=== PATIENT | male | born 1970 | race Caucasian/White ===

== ENCOUNTER 2024-03-04 08:37 | Inpatient (IN) | payer BC ==
--- OUTSIDE RECORDS SUMMARY | 2024-03-04 08:40 | XMS REPORT | Continuity of Care Document ---
Author Name Unknown Address [address] [place] [address] [facility] thconnect Address [address] [place] [address] Care Team Providers Care Patent Law Specialist Name Role Phone ALDA DA SILVA Attending Clinician UnavailKATY Mata Attending Clinician Unavailable MIGUEL VASQUEZ Attending Clinician Unavailable SPARKLE SCALES Attending Clinician Unavailable ONDINA CABEZAS Attending Clinician Unavailable KELLEY ACEVEDO Attending Clinician Unavailable TERRY BROWER Attending Clinician Unavaila ble LAB90 Attending Clinician Unavailable ADILSON KERR Attending Clinician DR SASKIA Dubose Attending Clinician Unavailable DR SASKIA LLOYD Admitting Clinician Unavailable Payers Payer Name Policy Type Policy Number Effective Date Expirati on Date Source BCBS 2 [id number] 2022 00:00:00 Social History Social Habit Start Date Stop Date Quantity Comments Source Gender identity 2022-08-16 07:13:17 Identifies as male gender (finding) Rashida Avalos - External Sexual orientation Husam Avalos - External Alcoholic beverage intake 2024-01-31 00:00:00 2024-01-31 00:00:00 Current drinker of alcohol (finding) Rashida Avalos - External Alcohol intake 2023-06-12 00:00:00 2023-06-12 00:00:00 Current drinker of alcohol (finding) Rashida Avalos - External Tobacco use and exposure 2023-01-25 00:00:00 2023-01-25 00:00:00 Smokeless tobacco non-user Rashida Sánchez History of Social function 2023-01-25 00:00:00 2023-01-25 00:00:00 Rashida Sánchez Alcohol Comment 2023-01-25 00:00:00 2023-01-25 00:00:00 occasionally Rashida Sánchez Sex [birth year] at 1970 00:00:00 1970 00:00:00 Rashida Sánchez Smoking Status Start Date Stop Date Source Tobacco smoking consumption unknown Rashida Sánchez Never smoked tobacco Rashida Sánchez Medications Ordered Medication Name Filled Medication Name Start Date Stop Date Current Medication? Ordering Clinician Indication Dosage Frequency Signature (SIG) Comments Components Source Naproxen 500 MG oral Tablet 01-30 00:00: 00 Yes [id number] 500mg Take 1 tablet (500 mg total) by mouth in the morning and 1 tablet (500 mg total) in the evening. Take with meals. Rashida vann Cyclobenzap rine HCl 10 MG oral Tablet 01-30 00:00: 00 Yes [id number] 10mg Q.[id number] 3D Take 1 tablet (10 mg total) by mouth 3 times daily as needed for muscle spasms. Rashida vann Pseudoeph-B romphen-DM 30-2-10 MG/5ML oral Syrup 12-03 00:00: 00 01-30 00:00 :00 No [id number] 10mL Q.25D Take 10 mL by mouth 4 times daily as needed. Rasihda vann Azithromyci n 500 MG oral Tablet 12-03 00:00: 00 01-30 00:00 :00 No [id number] 500mg QD Take 1 tablet (500 mg total) by mouth daily. Rashida vann Amoxicillin -Pot Clavulanate 875-125 MG oral Tablet 2022-07 00:00: 00 Yes [id number] 1{tbl} Take 1 tablet by mouth 2 times daily. Rashida vann Pseudoeph-B romphen-DM 30-2-10 MG/5ML oral Syrup 2022-07 1-29 00:00: 00 12-03 00:00 :00 No [id number] 10mL Take 10 mL by mouth 4 times daily. Rashida vann Valacyclovi r HCl 500 MG oral Tablet -14 00:00: 00 Yes 500mg Take 1 tablet (500 mg total) by mouth daily. Rashida vann Pseudoeph-B romphen-DM (Bromfed DM) 30-2-10 MG/5ML oral Syrup -14 00:00: 00 Yes [id number] 10mL Q.25D Take 10 mL by mouth 4 times daily as needed Rashida vann guaiFENesin -Codeine (Cheratussi n AC) 100-10 MG/5ML oral Syrup 08-16 00:00: 00 01-25 00:00 :00 No [id number] 5mL Q.[id number] 3D Take 5 mL by mouth 3 times daily as needed for cough Rashida vann Azithromyci n 250 MG oral Tablet 08-16 00:00: 00 08-22 05:59 :00 No [id number] Take 2 tablets by mouth on day 1 then 1 tablet by mouth daily for 4 days thereafter . Rashida vann Vital Signs Vital Name Observation Time Observation Value Comments S ource Systolic blood pressure 2023-06-12 16:37:00 124 mm[Hg] Rashida thomas - External Diastolic blood pressure 2023-06-12 16:37:00 80 mm[Hg] Rashida thomas - External Heart rate 2023-06-12 16:37:00 68 /min Wendy Avalos - External Body temperature 2023-06-12 16:37:00 36.67 Marjorie Rashida Avalos - External Respiratory rate 2023-06-12 16:37:00 16 /min Rashida Avalos - External Body height 2023-06-12 16:37:00 182.9 cm Audelia Avalos - External Body weight 2023-06-12 16:37:00 95.255 kg Audelia ey Seybold - External BMI 2023-06-12 16:37:00 28.48 kg/m2 Audelia ey Seybold - External Oxygen saturation in Arterial blood by Pulse oximetry 2023-06-12 16:37:00 96 /min Rashida Membrenoo ld - External Systolic blood pressure 2023-01-25 15:59:00 106 mm[Hg] Rashida Membrenoo ld - External Diastolic blood pressure 2023-01-25 15:59:00 68 mm[Hg] Rashida Membrenoo ld - External Heart rate 2023-01-25 15:59:00 88 /min Wendy y Seybold - External Body temperature 2023-01-25 15:59:00 36.89 Marjorie Rashida Seybold - External Respiratory rate 2023-01-25 15:59:00 18 /min Rashida Seybold - External Body height 2023-01-25 15:59:00 182.9 cm Audelia ey Seybold - External Body weight 2023-01-25 15:59:00 93.26 kg Audelia ey Seybold - External BMI 2023-01-25 15:59:00 27.88 kg/m2 Audelia ey Seybold - External Encounters Start Date/Time End Date/Time Encounter Type Admission Type Attending [facility] Care Facility Care Department Encounter ID Source 2021-11-18 12:25:00 Outpatient [facility] [id number] [facility] 2021-08-02 15:21:02 Outpatient [facility] [id number] [facility] 2021-07-28 14:32:17 Outpatient [facility] [id number] [facility] 2024-03-08 15:00:00 2024-03-08 15:00:00 Outpatient ALDA DA SILVA [id number] Rashida Avalos 2024-02-15 13:45:00 2024-02-15 13:45:00 Outpatient RASHIDA LYON [id number] Rashida Avalos 2024-02-14 13:45:00 2024-02-14 13:45:00 Outpatient RASHIDA LYON [id number] Rashida Membrenoold 2024-01-31 11:15:00 2024-01-31 11:15:00 Outpatient KATY MCCLOUD [facility]IDA LYON [id number] [facility]23-12-04 12:00:00 2023-12-04 12:00:00 Outpatient MIGUEL VASQUEZ [facility]NO [id number] [facility]:00:00 2023-07-06 00:00:00 Outpatient SPARKLE SCALES [id number] [facility] 2023-06-20 00:00:00 2023-06-20 00:00:00 Outpatient ONDINA CABEZAS [id number] [facility] 2023-06-19 00:00:00 2023-06-19 00:00:00 Outpatient BELLEONDINA BROOKS [id number] [facility] 2023-06-12 11:00:00 2023-06-12 11:00:00 Outpatient AVINASH ALDA RASHIDA LYON [id number] [facility] 2023-05-31 08:00:00 2023-05-31 08:00:00 Outpatient KELLEY ACEVEDO RASHIDA LYON [id number] [facility] 2023-05-15 00:00:00 2023-05-15 00:00:00 [facility] [id number] [facility]:00:00 2023-03-21 00:00:00 Outpatient RODOLFOChio TERRY [facility] [id number] [facility]21 00:00:00 2023-03-21 00:00:00 Outpatient SPARKLE SCALES [id number] [facility] 2023-03-21 00:00:00 2023-03-21 00:00:00 Outpatient SPARKLE SCALES [id number] [facility] 2023-03-17 00:00:00 2023-03-17 00:00:00 Outpatient SPARKLE SCALES [id number] Rashida Avalos 2023-02-24 00:00:00 2023-02-24 00:00:00 Outpatient SPARKLE SCALES [facility]ASHIDA LYON [id number] [facility]23-02-01 00:00:00 2023-02-01 00:00:00 Outpatient SPARKLE SCALES [facility]ASHIDA LYON [id number] [facility] 2023-01-25 15:25:00 2023-01-25 15:25:00 Outpatient LAB90 RASHIDA LYON [id number] Rashida [facility] 2023-01-25 11:00:00 2023-01-25 11:00:00 Outpatient SPARKLE SCALES RASHIDA LYON [id number] Rashida [facility] 2022-08-22 11:00:00 2022-08-22 11:00:00 Outpatient SPARKLE SCALES [facility]IDA LYON [id number] [facility] 2022-08-16 11:45:00 2022-08-16 11:45:00 Outpatient ADILSON KERR [id number] [facility] 2022-08-16 00:00:00 2022-08-16 00:00:00 Outpatient ADILSON KERR [id number] [facility] 2017-02-17 04:50:00 2017-02-17 07:30:00 Outpatient SASKIA HAYES [facility] [id number] [facility] Notes Date/Time Note Provider Source 2023-01-25 11:04:35 Formatting of this n ote is different from the original. Chief Complaint Patient presents with Physical [facility] Whit[facility]
[2024-03-04] MEDS ORDERED: HYDROMORPHONE HCL 1 MG/ML INJ ONE ×2 (08:59→09:50)
[2024-03-04 09:15] LABS: Absolute Lymphocytes (CBC) 0.2 K/uL (0.7-4.9); Absolute Monocytes 0.2 K/uL (0.1-1.3); Absolute Neutrophil 7.8 K/uL (1.8-8.0); Basophils % 0.4 % (0-1.3); Eosinophils % 0.1 % (0-4.4); Hematocrit 51.2 % (39.6-49.0); Hemoglobin 17.1 g/dL (13.6-17.9); Lymphocytes % 2.4 % (15.3-44.8); MCH 32.8 pg (27.0-35.0); MCHC 33.3 g/dL (32.0-36.0); MCV 98.4 fL (80-100); MPV 8.1 fL (7.6-11.3); Monocytes % 2.9 % (3.3-12.3); Neutrophils % 94.2 % (41.7-73.7); Platelets 190 thou/uL (152-406); Red Cell Distribution Width 13.9 % (12.1-15.2)
[2024-03-04 09:22] LABS: Albumin 3.7 g/dL (3.4-5.0); Albumin/Globulin Ratio 1.1 (1.1-1.8); Anion Gap 3.6 mEq/L (5.0-15.0); Bilirubin Total 1.5 mg/dL (0.2-1.0); Globulin 3.3 g/dL (2.3-3.5)
[2024-03-04 09:23] LABS: Potassium 4.6 mEq/L (3.5-5.1)
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
[2024-03-04] MEDS ORDERED: NA CHLORIDE 0.9% 100 ML ONE (09:32)
[2024-03-04] MEDS ORDERED: NA CHLORIDE 0.9% 1,000 ML ONE (09:32)
[2024-03-04] MEDS ORDERED: ONDANSETRON 4 MG/2 ML VIAL ONE ×2 (09:32→12:56)
[2024-03-04] MEDS ORDERED: PIPERACIL/TAZO 3.375 GM VIAL IV ONE (09:33)
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
[2024-03-04 10:08] LABS: Blood Morphology Comment NOT SEEN (NOT SEEN); Platelet Estimate ADEQ; White Blood Cell Scan OK (OK)
[2024-03-04] MEDS: SUCCINYLCHOLINE 20 MG/ML (10 ML) IV ONE (10:26)
[2024-03-04] MEDS ORDERED: FENTANYL CITR 100 MCG/2 ML ONE (10:26)
[2024-03-04] MEDS ORDERED: MIDAZOLAM HCL 2 MG/2 ML INJ ONE (10:26)
[2024-03-04] MEDS ORDERED: LIDOCAINE 2% MPF 5 ML VIAL ONE (10:26)
[2024-03-04] MEDS: SUGAMMADEX SODIUM 200 MG/2 ML VIAL IV ONE (10:26)
[2024-03-04] MEDS ORDERED: propofoL 200 MG/20 ML VIAL IV ONE (10:26)
[2024-03-04] MEDS ORDERED: ROCURONIUM 50 MG/5 ML VIAL IV ONE ×2 (10:26→12:19)
[2024-03-04] MEDS: Ringers Lactate 1,000 ML IV ONE ×2 (10:45→12:13)
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
[2024-03-04] MEDS ORDERED: ONDANSETRON 4 MG/2 ML VIAL IV PRN (11:31)
[2024-03-04] MEDS ORDERED: EPHEDRINE SULF 50 MG/ML VIAL ONE (11:43)
[2024-03-04] MEDS: NA CHLORIDE 0.9% 1,000 ML IV SCH (12:00)
[2024-03-04] MEDS ORDERED: dexAMETHasone 4 MG/ML VIAL ONE (12:56)
--- NOTE | 2024-03-04 13:26 | P.OP ---
Date of Service: 03/04/24 Preop diagnosis: Perforated rectum secondary to foreign body Postop diagnosis: Same with stool and blood in the pelvis Procedure performed: Exploratory laparotomy, repair of rectal perforation, repair of umbilical hernia and diverting sigmoid colostomy Surgeon: Dayton Hernandez MD Form Tamper: Juliet OCHOA Estimated blood loss: Minimal Specimen: Hernia sac and contents Findings: As above Anesthesia: General Complications: None Drains: Yakov-Chacon #10 flat Fluids and blood products: Nonapplicable Disposition: Recovery room Operative note: Patient brought to the OR and placed in supine position. General anesthesia began. Patient prepped and draped in usual sterile fashion. Midline incision from just above the umbilicus to the pubis made. Subcutaneous tissue divided and bleeding controlled with cautery. Fascia identified and divided. Peritoneal cavity entered with sharp and blunt dissection. Moderate amount of serous fluid mixed with stool was present in the pelvis. This was aspirated. Exploratory laparotomy performed which showed GE junction, normal stomach, normal duodenal sweep and normal small bowel proximally. Distally the small bowel was in the pelvis with appearance of induration and small amount of fecal contamination. Cecum, ascending colon, transverse colon and sigmoid colon were within normal limits. Liver, gallbladder and peritoneal surface were within normal limit as well. At the proximal rectum there was approximately a 4 inch tear in the anterior portion of the rectum exposing the mucosa. The tear was longitudinal and length. There was some induration and bruising noted in the nearby tissue. There was stool in the pelvis which was evacuated. Entire abdomen was thoroughly irrigated until the effluent was clear. The tear was repaired with 3-0 Vicryl interlocking running suture. There was no compromise in the circumference of the rectum as the tear appeared to be linear. Proximal to the tear, sigmoid colon was mobilized at the white line of Toldt. Endo MARIA ELENA stapling device used to divide the sigmoid colon at the rectal junction. LigaSure used to mobilize the sigmoid colon. A 2 cm circular incision was made in the left lower quadrant. Subcutaneous fat was excised. Fascia was identified and opened. Through this opening, the sigmoid colon was taking out for maturation. Colostomy was matured after the midline incision was closed. Subsequently, entire abdomen was irrigated and effluent was clear. There was no evidence of bleeding or bowel contents seen. Yakov-Chacon drain #10 flat was placed in the pelvis and secured in the right lower quadrant with 3-0 nylon. #2 nylon was used to close the midline fascia. There was a small umbilical hernia with a 1 cm defect near the midline. The hernia sac was excised with preperitoneal fat. This was sent to pathology as specimen. Fascial defect was closed along with the midline fascia. Subcutaneous wounds irrigated and bleeding controlled cautery. Kristy used to loosely close the skin. Sterile dressing applied. And then the colostomy was matured with circular 3-0 chromic interrupted sutures. Colostomy was examined there was no obstruction and mucosa was pink and healthy appearing. Sterile dressing applied. Patient awakened and taken to recovery room in good general condition. CC:
[2024-03-04] MEDS ORDERED: NALOXONE 0.4 MG/ML VIAL IV PRN (13:36)
[2024-03-04] MEDS ORDERED: SODIUM CHLORIDE 0.9% 10ML INJ IV PRN (13:36)
[2024-03-04] MEDS: HYDROMORPHONE HCL 1 MG/ML INJ ONE ×2 (13:54→14:01)
--- NOTE | 2024-03-04 15:02 | RAD REPORT ---
EXAM DESCRIPTION: RAD - Abdomen 1 View (KUB) - 03/04/2024 2:22 pm CLINICAL HISTORY: Placement of NGT/OGT. Post Insertion. COMPARISON: Abdomen Pelvis W Contrast dated 03/04/2024 FINDINGS: Nonobstructive bowel gas pattern. No acute osseous abnormality.Visualized lungs are unrema rkable.No abnormal calcifications. NG tube tip overlies the stomach. IMPRESSION: NG tube tip overlies the stomach in satisfactory position.
[2024-03-04 15:28] VITALS: BMI 24.4
[2024-03-04] MEDS: HYDROMORPHONE/PCA 10 MG/50 ML SYR IV PRN (15:34)
[2024-03-04 15:42] LABS: Specific Gravity > 1.030 (1.005-1.030); Sqamous Epithelial None Seen /HPF (None Seen); Urine Bacteria None Seen /HPF (<20); Urine Bilirubin NEGATIVE (Negative); Urine Blood 1+ (Negative); Urine Clarity Clear (Clear); Urine Color Light-Yellow (Yellow); Urine Culture Reflex Order NOT NEEDED; Urine Glucose 3+ (Negative); Urine Ketones NEGATIVE (Negative); Urine Microscopic Reflex YN ORDER UMIC; Urine Mucus Slight /HPF (None Seen); Urine Nitrite NEGATIVE (Negative); Urine Protein TRACE (Negative); Urine Urobilinogen 1+ (Normal); Urine WBC <5 /HPF (<5); Urine pH 6.5 (5.0-7.0)
[2024-03-04] MEDS: PIPER TAZO 3.375 GM in NA CHLORIDE 0.9% 100 ML IV SCH (17:15)
[2024-03-04] MEDS: HYDRALAZINE HCL 20 MG/ML VIAL IV PRN (17:16)
[2024-03-05] MEDS: HYDROMORPHONE HCL 1 MG/ML INJ IV PRN (03:53)
[2024-03-05 05:46] LABS: Absolute Lymphocytes (CBC) 0.3 K/uL (0.7-4.9); Absolute Monocytes 0.4 K/uL (0.1-1.3); Basophils % 0.1 % (0-1.3); Hematocrit 45.2 % (39.6-49.0); Lymphocytes % 2.7 % (15.3-44.8); MCH 33.2 pg (27.0-35.0); MCHC 33.3 g/dL (32.0-36.0); MCV 99.6 fL (80-100); MPV 8.3 fL (7.6-11.3); Monocytes % 4.1 % (3.3-12.3); Neutrophils % 93.1 % (41.7-73.7); Nucleated Red Blood Cells % 0.1 % (0-0); Platelets 176 thou/uL (152-406); RBC Red Blood Cell Count 4.53 M/uL (4.33-5.43)
[2024-03-05 06:01] LABS: Albumin 3.1 g/dL (3.4-5.0); Anion Gap 9.2 mEq/L (5.0-15.0); Globulin 3.2 g/dL (2.3-3.5); Phosphorus 3.5 mg/dL (2.5-4.9); Potassium 4.2 mEq/L (3.5-5.1); Protein, Total 6.3 g/dL (6.4-8.2)
[2024-03-05] MEDS: ENOXAPARIN 40 MG/0.4 ML SQ SCH (07:59)
[2024-03-05] MEDS: PANTOPRAZOLE 40 MG INJ IVP SCH (08:00)
[2024-03-05] MEDS: PHENOL 1.4% ORAL SPRAY 180ML MM PRN (11:08)
--- NOTE | 2024-03-05 11:56 | P.PN ---
Date of Service: 03/05/24 Subjective Awake and feeling well Ambulated with physical therapy this morning ROS 10 point ROS as noted above, otherwise negative Physical Exam General: Alert and Oriented x3, NAD HEENT: Atraumatic, Normocephalic Neck: Supple, 2+ carotid pulse no bruit Respiratory: Clear to auscultation bilaterally, Normal air movement, on RA Cardiovascular: Normal pulses, RRR, Normal S1 S2 Capillary refill: <2 Seconds Gastrointestinal: Hypoactive, Soft and benign on palpation, Non-distended, Tenderness Musculoskeletal: No clubbing Integumentary: No rashes Neurological: Normal speech, Normal tone Vitals Reviewed Problem list Acute Upper rectal perforation PASCALE Transaminitis Hyperglycemia Assessment and Plan Acute Upper rectal perforation -CT abd/pelvis Findings concerning for upper rectal perforation with extralumi nal feces, mild free air, and abdominopelvic free fluid. Recommend surgical consultation. -Dr. Hernandez consulted -H/H stable, will continue to monitor -NPO except ice chips, advance slowly while healing -Pain control -Continue Zosyn Q8h PASCALE -BUN/creatinine 22/1.26, GFR 68- improved -Continue IVF Transaminitis - AST 48, ALT 67 -continue IVF -monitor in AM labs Hyperglycemia -Serum glucose 147, POC 150 -A1C pending -Continue to monitor DVT ppx lovenox Full code LOS 2-3 days Discharge Plan: Home Plan to discharge in: 72 Hours
--- NOTE | 2024-03-05 12:38 | EKG ---
Test Date: 2024-03-04 Test Time: 10:23:25 Sales Support Associate: SOUTH MEASUREMENT RESULTS: Intervals: Rate: 80 AL: 158 QRSD: 104 QT: 352 QTc: 405 Roca: P: 71 AL: 158 QRS: 84 T: 25 INTERPRETIVE STATEMENTS: Normal sinus rhythm Minimal voltage criteria for LVH, may be normal variant Borderline ECG Compared to ECG 02/10/2017 11:39:35 Sinus bradycardia no longer present T-wave abnormality no longer present Electronically Signed On 03-05-24 12:37:04 CDT by Vincent Shannon
--- NOTE | 2024-03-05 13:09 | PN ---
Date of Progress Note: 03/05/2024 Subjective: Patient is awake, alert. Pain is controlled. Vitals are stable, afebrile. NG tube 350 . JOHN drain has serosanguineous fluid, put out 180 cc at the last shift. Laboratory Data: Reviewed. White count is 10.7, there is a left shift, and chemistry reviewed. Objective: Vital Signs: Stable. He is afebrile. Abdomen: Soft. Hypoactive bowel sounds. Dressing is clean, dry, and intact. Assessment: Status post repair of rectal perforation and diverting sigmoid colostomy. Recommendations: Discontinue Ricardo as urine output is adequate. We will transfer him to the floor. Chloraseptic for irritation of the throat from the NG tube. Please note, the ostomy is pink and wit h no bowel function at this time. Continue IV antibiotics. Encouraged ambulation with Import Coordinator apy and incentive spirometry. Patient is clinically stable, and the patient will be downgraded from the ICU today. /MODL Voice ID: [id number] Report ID: [id number]
[2024-03-06 05:05] LABS: Absolute Eosinophils 0.1 K/uL (0-0.5); Absolute Lymphocytes (CBC) 0.3 K/uL (0.7-4.9); Absolute Monocytes 0.4 K/uL (0.1-1.3); Absolute Neutrophil 7.5 K/uL (1.8-8.0); Basophils % 0.1 % (0-1.3); Eosinophils % 0.6 % (0-4.4); Hematocrit 42.3 % (39.6-49.0); Hemoglobin 14.1 g/dL (13.6-17.9); Lymphocytes % 3.6 % (15.3-44.8); MCHC 33.3 g/dL (32.0-36.0); MPV 7.9 fL (7.6-11.3); Monocytes % 5.3 % (3.3-12.3); Platelets 193 thou/uL (152-406); RBC Red Blood Cell Count 4.28 M/uL (4.33-5.43); Red Cell Distribution Width 14.1 % (12.1-15.2)
[2024-03-06 05:13] LABS: Neutrophils % 90.4 % (41.7-73.7)
[2024-03-06 05:24] LABS: Albumin 2.8 g/dL (3.4-5.0); Albumin/Globulin Ratio 0.8 (1.1-1.8); Anion Gap 20.2 mEq/L (5.0-15.0); Bilirubin Total 0.8 mg/dL (0.2-1.0); Globulin 3.3 g/dL (2.3-3.5); Phosphorus 1.8 mg/dL (2.5-4.9); Potassium 4.2 mEq/L (3.5-5.1); Protein, Total 6.1 g/dL (6.4-8.2)
[2024-03-06] MEDS: SODIUM PHOSPHATE 15 MM in NA CHLORIDE 0.9% 250 ML IV SCH (08:15)
--- NOTE | 2024-03-06 09:27 | PN ---
Date of Progress Note: 03/06/2024 Subjective: The patient is awake, alert. No complaints. Minimal serous fluid out of the colostomy. No gas seen yet. The patient feels rumbling in his stomach. Minimal output from the NG tube. Objective: Vital Signs: Stable. He is afebrile. Abdomen: Soft, nondistended. Positive bowel sounds. Minimal incisional tenderness. Dressing is cl dario, dry, intact Laboratory Data: Reviewed. White count is normal. There is slight left shift. Chemistry is review ed. Assessment: Status post repair of his rectal injury as well as diverting sigmoid colostomy. Recommendations: We will clamp the NG tube and check residuals. Begin sips of clear liquids. The p atient is clinically stable, slowly improving. Continue IV antibiotics. Encourage ambulation and in centive spirometry, which he is doing very well. /MODL Voice ID: [id number] Report ID: [id number]
[2024-03-06] MEDS: HYDROMORPHONE HCL 1 MG/ML INJ IV PRN (11:45)
--- NOTE | 2024-03-06 12:56 | P.PN ---
Date of Service: 03/06/24 Subjective Sitting in his chair, using the incentive spirometer, reports slowing drinking water. He reports walking while pushing his IV pole Reports passing gas ROS 10 point ROS as noted above, otherwise negative Physical Exam General: AAO x3, NAD HEENT: Atraumatic, Normocephalic Neck: Supple, 2+ carotid pulse no bruit Respiratory: Clear to auscultation bilaterally, metrical chest wall movement, on RA Cardiovascular: Normal pulses, mild tachycardia, Normal S1 S2 Capillary refill: <2 Seconds Gastrointestinal: normal active Bowel sounds, Soft on palpation, ND, Tenderness, NGT present, Colostomy Musculoskeletal: No clubbing Integumentary: No rashes Neurological: Normal speech, Normal tone Vitals Reviewed Problem list Acute Upper rectal perforation PASCALE Transaminitis Hyperglycemia Assessment and Plan Acute Upper rectal perforation -CT abd/pelvis Findings concerning for upper rectal perforation with extraluminal feces, mild free air, and abdominopelvic free fluid. Recommend surgical consultation. -Dr. Hernandez consulted -H/H stable -CLD -Pain control -Continue Zosyn Q8h -NGT in place, likely removing tonight PASCALE -BUN/creatinine 17/1.18, GFR 71- improved -Continue IVF Transaminitis - AST 34, ALT 54 -continue IVF -monitor in AM labs Hyperglycemia -Serum glucose 100 -A1C 5.0 -Continue to monitor DVT ppx lovenox Full code LOS 2-3 days Discharge Plan: Home Plan to discharge in: 72 Hours
[2024-03-06] MEDS ORDERED: HYDROMORPHONE HCL 0.5 MG/0.5 ML INJ IV PRN ×2 (16:20→16:22)
[2024-03-07 05:32] LABS: Absolute Eosinophils 0.1 K/uL (0-0.5); Absolute Lymphocytes (CBC) 0.4 K/uL (0.7-4.9); Absolute Monocytes 0.4 K/uL (0.1-1.3); Absolute Neutrophil 5.3 K/uL (1.8-8.0); Basophils % 0.3 % (0-1.3); Eosinophils % 0.9 % (0-4.4); Hematocrit 44.6 % (39.6-49.0); Lymphocytes % 6.7 % (15.3-44.8); MCH 33.1 pg (27.0-35.0); MCHC 33.6 g/dL (32.0-36.0); MCV 98.5 fL (80-100); Monocytes % 5.9 % (3.3-12.3); Neutrophils % 86.2 % (41.7-73.7); Platelets 217 thou/uL (152-406); RBC Red Blood Cell Count 4.52 M/uL (4.33-5.43)
[2024-03-07 05:53] LABS: Albumin/Globulin Ratio 0.8 (1.1-1.8); Anion Gap 7.3 mEq/L (5.0-15.0); Potassium 4.3 mEq/L (3.5-5.1)
[2024-03-07 05:54] LABS: Phosphorus 1.5 mg/dL (2.5-4.9)
[2024-03-07 06:48] LABS: Blood Morphology Comment NOT SEEN (NOT SEEN); Platelet Estimate ADEQ; White Blood Cell Scan OK (OK)
[2024-03-07] MEDS: POTASS/SODIUM PHOSPHATE 1 PKT POWD.PACK PO SCH (08:36)
--- NOTE | 2024-03-07 10:12 | PN ---
Date of Progress Note: 03/07/2024 Subjective: The patient is awake, alert. No complaint. Vitals stable, afebrile. White count is no rmal. There is slight left shift and Yakov-Chacon drain is putting out minimal output, serosanguine ous in nature. Colostomy has air in it. Objective: Abdomen: Soft, nondistended, nontender. Positive bowel sounds. Assessment: Status post repair of rectal perforation and diverting sigmoid colostomy. Recommendations: Advance diet. Continue colostomy teaching. The patient is clinically doing well, likely discharged home tomorrow. /MODL Voice ID: [id number] Report ID: [id number]
--- NOTE | 2024-03-07 17:03 | P.PN ---
Date of Service: 03/07/24 Subjective Much improved this morning, eating comfortably Advancing diet for tomorrow morning Likely discharge in the AM ROS 10 point ROS as noted above, otherwise negative Physical Exam General: Awake, alert, and oriented x3, NAD HEENT: Atraumatic, Normocephalic Neck: Supple, 2+ carotid pulse no bruit Respiratory: Clear to auscultation bilaterally, symmetrical chest wall movement, on RA Cardiovascular: Normal pulses, regular rate and rhythm, Normal S1 S2 Capillary refill: <2 Seconds Gastrointestinal: normal active Bowel sounds, Soft on palpation, ND, Tenderness, NGT present, Colostomy Musculoskeletal: No clubbing Integumentary: No rashes Neurological: Normal speech, Normal tone Vitals Reviewed Problem list Acute Upper rectal perforation PASCALE Transaminitis Hypophosphatemia Hyperglycemia Assessment and Plan Acute Upper rectal perforation -CT abd/pelvis Findings concerning for upper rectal perforation with extraluminal feces, mild free air, and abdominopelvic free fluid. Recommend surgical consultation. -Dr. Hernandez consulted -H/H stable -CLD -Pain control -Continue Zosyn Q8h -NGT in place, likely removing tonight PASCALE -BUN/creatinine 17/07.23, GFR 70- improved -Continue IVF Transaminitis - AST 32, ALT 53 -continue IVF -monitor in AM labs Hypophosphatemia -Phos1.5 -replete PRN Hyperglycemia-resolved -Serum glucose 89 -A1C 5.0 DVT ppx lovenox Full code LOS 2-3 days Discharge Plan: Home Plan to discharge in: 72 Hours
[2024-03-08 05:36] LABS: Absolute Eosinophils 0.1 K/uL (0-0.5); Absolute Lymphocytes (CBC) 0.6 K/uL (0.7-4.9); Absolute Monocytes 0.4 K/uL (0.1-1.3); Absolute Neutrophil 3.1 K/uL (1.8-8.0); Albumin 2.7 g/dL (3.4-5.0); Albumin/Globulin Ratio 0.8 (1.1-1.8); Anion Gap 8.9 mEq/L (5.0-15.0); Basophils % 0.4 % (0-1.3); Eosinophils % 2.4 % (0-4.4); Globulin 3.4 g/dL (2.3-3.5); Hematocrit 42.2 % (39.6-49.0); Lymphocytes % 13.8 % (15.3-44.8); MCH 32.7 pg (27.0-35.0); MCHC 33.1 g/dL (32.0-36.0); MCV 98.9 fL (80-100); MPV 7.6 fL (7.6-11.3); Magnesium 1.9 mg/dL (1.6-2.4); Monocytes % 8.5 % (3.3-12.3); Neutrophils % 74.9 % (41.7-73.7); Platelets 211 thou/uL (152-406); Potassium 3.9 mEq/L (3.5-5.1); Protein, Total 6.1 g/dL (6.4-8.2); RBC Red Blood Cell Count 4.27 M/uL (4.33-5.43); Red Cell Distribution Width 13.8 % (12.1-15.2)
[2024-03-08 08:46] VITALS: O2SAT 96
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
[2024-03-08 12:45] VITALS: BP 161/93; TEMP 98.5
--- NOTE | 2024-03-08 13:12 | PN ---
Date of Progress Note: 03/08/2024 Subjective: Patient is awake, alert. No complaint. Tolerating diet. Colostomy has bowel function. Objective: Vital Signs: Stable. He is afebrile. General: His dressing is clean, dry, intact. Abdomen: Soft. Laboratory Data: Reviewed, essentially within normal limits. Assessment: Status post repair of rectal injury and diverting sigmoid colostomy. Recommendations: Patient cleared from surgery for discharge. Discharge instructions given. Antibio tics and pain medicine per the hospitalist and follow up with my office next week. /MODL Voice ID: [id number] Report ID: [id number]
[2024-03-08] MEDS ORDERED: AMOX/K CLAV 875 MG TAB PO SCH (21:00)
== END 2024-03-08 13:58 | disposition home health service (06) | DRG 329 ==
LOC: ER 08:37 → 2ND 11:31 → 3RD-ICU 13:56 → 2ND 03-06 13:21
PROVIDERS: ADMIT Hospitalist; ATTEND Internal Medicine
PROC: 0WQF0ZZ Repair Abdominal Wall, Open Approach (ICD-10-PCS; 2024-03-04)
PROC: 0DBN0ZZ Excision of Sigmoid Colon, Open Approach (ICD-10-PCS; 2024-03-04)
PROC: 0DH67UZ Insertion of Feeding Device into Stomach, Via Natural or Artificial Opening (ICD-10-PCS; 2024-03-04)
PROC: 0T9B70Z Drainage of Bladder with Drainage Device, Via Natural or Artificial Opening (ICD-10-PCS; 2024-03-04)
PROC: 0DQP0ZZ Repair Rectum, Open Approach (ICD-10-PCS; principal; 2024-03-04 11:00)
DX: K63.1 Perforation of intestine (nontraumatic) (principal); K65.9 Peritonitis, unspecified; K62.5 Hemorrhage of anus and rectum; N17.9 Acute kidney failure, unspecified; T18.5XXA Foreign body in anus and rectum, initial encounter; E86.0 Dehydration; E83.39 Other disorders of phosphorus metabolism; K42.9 Umbilical hernia without obstruction or gangrene; R73.9 Hyperglycemia, unspecified; R74.01 Elevation of levels of liver transaminase levels
CPT/HCPCS: 36415; 74018; 74177; 80053; 81001; 82947; 83036; 83690; 83735; 84100; 85025; 88302; 93005; 94010; 96374; 96375; 97116; 97161; 97530; 99285; J0360; J1100; J1170; J1650; J2001; J2250; J2405; J2470; J2543; J2704; J3010; J7030; J7050; J7120; Q9967

== ENCOUNTER 2024-06-29 22:11 | Observation (INO) | payer BC ==
[2024-06-29 23:06] LABS: Absolute Eosinophils 0.1 K/uL (0-0.5); Absolute Lymphocytes (CBC) 0.8 K/uL (0.7-4.9); Absolute Monocytes 0.5 K/uL (0.1-1.3); Basophils % 0.5 % (0-1.3); Eosinophils % 1.6 % (0-4.4); Hematocrit 46.7 % (39.6-49.0); MCH 32.2 pg (27.0-35.0); MCHC 34.3 g/dL (32.0-36.0); MCV 93.9 fL (80-100); MPV 7.7 fL (7.6-11.3); Monocytes % 9.6 % (3.3-12.3); Neutrophils % 73.3 % (41.7-73.7); Nucleated Red Blood Cells % 0.1 % (0-0); Platelets 185 thou/uL (152-406); RBC Red Blood Cell Count 4.97 M/uL (4.33-5.43); Red Cell Distribution Width 13.2 % (12.1-15.2)
[2024-06-29 23:15] LABS: PT Prothrombin Time 13.3 SECONDS (9.4-12.5); PTT, Activated Partial Thromb 29.7 SECONDS (24.3-36.9); Protime INR 1.19
[2024-06-29 23:28] LABS: Anion Gap 9.1 mEq/L (5.0-15.0)
[2024-06-29 23:29] LABS: Potassium 4.1 mEq/L (3.5-5.1)
[2024-06-29] MEDS ORDERED: HEPARIN/D5W 25,000 UNIT/500 ML BAG IV ONE (23:52)
[2024-06-29] MEDS ORDERED: HEPARIN 5000 UNIT/ML 1 ML VIAL ONE (23:52)
--- NOTE | 2024-06-30 00:19 | EDPHYS ---
Physician Documentation [facility] Name: Rosanne Montiel Age: 54 yrs Sex: Male : 1970 Arrival Date: 06/29/2024 Time: 22:11 Bed 5 Private MD: ED Physician Adrian Roberts HPI: 06/29 22:23 This 54 yrs old Male presents to ER via Unassigned with complaints of Arm ec2 Problem - swelling, Neck Pain, <24hrs Old. 22:23 Patient arrives today for evaluation of right arm swelling and vein prominence. Patient ec2 reports recent PICC line in place, reports that he recently had this removed and subsequently now has some prominent vasculature. Otherwise reports no falls injuries or trauma. Reports some discomfort to the area. No redness, denies any fevers or chills or nausea or vomiting.. Historical: - Allergies: 22:49 No Known Allergies; dd2 - PMHx: 22:49 None; dd2 - PSHx: 22:49 Colostomy; Ileostomy; dd2 - Immunization history:: Adult Immunizations up to date, Client reports receiving the 1st dose of the Covid vaccine, Flu vaccine is not up to date. - Infectious Disease History:: Denies. - Social history:: Smoking status: Patient denies any tobacco usage or history of. ROS: 22:23 Constitutional: as per hpi ec2 Exam: 22:23 Constitutional: GEN: NAD Head: atraumatic Eyes: EOMI Ears: External ears are ec2 normal. CV: regular rate, right upper extremity with prominent vasculature noted, intact distal neurovascular status. LUNGS: no respiratory distress ABD: non-distended SKIN: No significant erythema warmth or discharge noted to the right upper extremity. MSK: no evidence of trauma Vital Signs: 22:46 BP 150 / 94; Pulse 81; Resp 16; Temp 97.9(O); Pulse Ox 98% on R/A; Weight 91.17 kg; dd2 Height 6 ft. 1 in. ; 06/30 00:14 BP 146 / 96; Pulse 72; Resp 16; Pulse Ox 97% on R/A; dd2 01:10 BP 142 / 93; Pulse 79; Resp 16; Pulse Ox 99% on R/A; dd2 06/29 22:46 Body Mass Index 26.52 (91.17 kg, 185.42 cm) dd2 Tony Coma Score: 06/29 22:53 Eye Response: spontaneous(4). Motor Response: obeys commands(6). Verbal Response: dd2 oriented(5). Total: 15. MDM: 22:17 Medical Screening Exam initiated ec2 22:23 Data reviewed: vital signs, nurses notes. ED course: Patient arrives today for ec2 evaluation of right upper extremity swelling. Examination yields cardiovascular findings as above. Will obtain lab work as well as ultrasonography. Differential include processes such as DVT, doubt cellulitis, doubt abscess.. 23:31 ED course: Patient with right upper extremity DVT, will start the patient on heparin ec2 drip, will admit given the location of the right upper extremity.. 06/29 22:23 Order name: Basic Metabolic Panel; Complete Time: 23:31 ec2 06/29 22:23 Order name: CBC with Diff; Complete Time: 23:27 ec2 06/29 22:23 Order name: PT-INR; Complete Time: 23:27 ec2 06/29 22:23 Order name: Ptt, Activated; Complete Time: 23:27 ec2 06/30 01:28 Order name: Urinalysis w/ reflexes EDMS 06/30 01:28 Order name: CBC with Automated Diff EDMS 06/30 01:28 Order name: CBC with Automated Diff EDMS 06/30 01:28 Order name: Comprehensive Metabolic Panel EDMS 06/30 01:28 Order name: Comprehensive Metabolic Panel EDMS 06/29 22:47 Order name: UPPER EXTREMITY VENOUS UNILATE EDMS 06/29 22:23 Order name: Cardiac monitoring; Complete Time: 22:55 ec2 06/29 22:23 Order name: IV Saline Lock; Complete Time: 22:55 ec2 06/29 22:23 Order name: Labs collected and sent; Complete Time: 22:55 ec2 06/29 22:23 Order name: O2 Per Protocol; Complete Time: 22:55 ec2 06/29 22:23 Order name: O2 Sat Monitoring; Complete Time: 22:55 ec2 Administered Medications: 06/30 00:07 Drug: Heparin (DVT/PE- Bolus per protocol) - HEParin IVP 80 units/kg IVP once; Max dd2 8,000 units {Co-Signature: [email or web address] (Wes Marino RN).} Route: IVP; Site: right forearm; 00:22 Follow up: Response: No adverse reaction dd2 00:07 Drug: Heparin (DVT/PE Drip) 18 units/kg/hr - ([place] [address] units, D5W IV 500 ml) IV dd2 at calculated rate Per protocol; Max initial rate 1800 units/hr {Co-Signature: bm8 (Wes Mairno RN).} Route: IV; Rate: calculated rate; Site: right forearm; 00:22 Follow up: Response: No adverse reaction dd2 02:00 Follow up: IV Status: Infusion continued upon transfer dd2 Disposition Summary: 06/30/24 00:18 Hospitalization Ordered Notes: Hospitalization Status: Inpatient Admission ec2 Provider: Joseph Smith ec2 Location: Telemetry/MedSur (Inpatient) ec2 Condition: Stable ec2 Problem: new ec2 Symptoms: are unchanged ec2 Bed/Room Type: Standard ec2 Room Assignment: 205(06/30/24 01:35) cg Diagnosis - Right Upper Extremity Deep Venous Thrombosis ec2 Forms: - Medication Reconciliation Form ec2 - SBAR form ec2 - Leadership Thank You Letter ec2 Signatures: Dispatcher [employer] Arlene Myers, RN RN cg Adrian Roberts MD MD ec2 HARSHA TRIANA RN RN dd2 Wes Marino RN bm8 Corrections: (The following items were deleted from the chart) 06/29 22:23 22:23 Extremity Venous Uni [employer]+[id number].RAD.BRZ ordered. EDMS EDMS 22:50 22:49 PSHx: illeostomy; dd2 dd2 06/30 01:35 00:18 ec2 cg
--- NOTE | 2024-06-30 00:19 | ER ---
Nurse's Notes [facility] Name: Rosanne Montiel Age: 54 yrs Sex: Male : 1970 Arrival Date: 06/29/2024 Time: 22:11 Bed 5 Private MD: Diagnosis: Right Upper Extremity Deep Venous Thrombosis Presentation: 06/29 22:46 Chief complaint: Patient states: had his PICC line removed yesterday and began having dd2 pain and swelling in the Rt arm and Rt side of neck. Coronavirus screen: At this time, the client does not indicate any symptoms associated with coronavirus-19. Ebola Screen: No symptoms or risks identified at this time. Initial Sepsis Screen: Does the patient meet any 2 criteria? No. Patient's initial sepsis screen is negative. Does the patient have a suspected source of infection? No. Patient's initial sepsis screen is negative. Risk Assessment: Do you want to hurt yourself or someone else? Patient reports no desire to harm self or others. Onset of symptoms was June 28, 2024. 22:46 Method Of Arrival: Ambulatory dd2 22:46 Acuity: SCOTTY 3 dd2 Triage Assessment: 22:49 General: Appears in no apparent distress. Behavior is calm, cooperative, appropriate dd2 for age. Pain: Complains of pain in right bicep and right sternocleidomastoid Pain does not radiate. Pain currently is 6 out of 10 on a pain scale. EENT: No deficits noted. No signs and/or symptoms were reported regarding the EENT system. Neuro: No deficits noted. Russo Agitation-Sedation Scale (RASS): 0 - Alert and Calm Level of Consciousness is awake, alert, obeys commands, Oriented to person, place, time, situation, Appropriate for age. Cardiovascular: No deficits noted. Patient's skin is warm and dry. Respiratory: No deficits noted. Airway is patent Respiratory effort is even, unlabored, Respiratory pattern is regular, symmetrical. GI: No deficits noted. No signs and/or symptoms were reported involving the gastrointestinal system. Abdomen is non-distended, Ileostomy site is clean and dry. Ostomy appliance is intact. Abd is soft and non tender. : No deficits noted. No signs and/or symptoms were reported regarding the genitourinary system. Derm: No deficits noted. No signs and/or symptoms reported regarding the dermatologic system. Musculoskeletal: Reports pain in right bicep and right sternocleidomastoid. Historical: - Allergies: 22:49 No Known Allergies; dd2 - PMHx: 22:49 None; dd2 - PSHx: 22:49 Colostomy; Ileostomy; dd2 - Immunization history:: Adult Immunizations up to date, Client reports receiving the 1st dose of the Covid vaccine, Flu vaccine is not up to date. - Infectious Disease History:: Denies. - Social history:: Smoking status: Patient denies any tobacco usage or history of. Screenin:53 [facility] ED Fall Risk Assessment (Adult) History of falling in the last 3 months, dd2 including since admission No falls in past 3 months (0 pts) Confusion or Disorientation No (0 pts) Intoxicated or Sedated No (0 pts) Impaired Gait No (0 pts) Mobility Assist Device Used No (0 pt) Altered Elimination Yes (1 pt) Score/Fall Risk Level 0 - 2 = Low Risk Oriented to surroundings, Maintained a safe environment, Educated pt \T\ family on fall prevention, incl call for assistance when getting out of bed, Assessed \T\ reinforced patient's understanding of fall precautions, Hourly rounding (assess needs \T\ fall precautionary measures) done. Abuse screen: Denies threats or abuse. Nutritional screening: No deficits noted. Tuberculosis screening: No symptoms or risk factors identified. Assessment: 22:53 Reassessment: SEE TRIAGE ASSESSMENT FOR FULL ASSESSMENT. dd2 06/30 00:14 Reassessment: No changes from previously documented assessment. Patient and/or family dd2 updated on plan of care and expected duration. Pain level reassessed. Patient is alert, oriented x 3, equal unlabored respirations, skin warm/dry/pink. Patient denies pain at this time. Vital Signs: 06/29 22:46 BP 150 / 94; Pulse 81; Resp 16; Temp 97.9(O); Pulse Ox 98% on R/A; Weight 91.17 kg; dd2 Height 6 ft. 1 in. ; 06/30 00:14 BP 146 / 96; Pulse 72; Resp 16; Pulse Ox 97% on R/A; dd2 01:10 BP 142 / 93; Pulse 79; Resp 16; Pulse Ox 99% on R/A; dd2 06/29 22:46 Body Mass Index 26.52 (91.17 kg, 185.42 cm) dd2 Kenneth Coma Score: 06/29 22:53 Eye Response: spontaneous(4). Motor Response: obeys commands(6). Verbal Response: dd2 oriented(5). Total: 15. ED Course: 22:13 Patient arrived in ED. im 22:16 Adrian Roberts MD is Attending Physician. ec2 22:39 HARSHA TRIANA RN is Primary Nurse. dd2 22:49 Triage completed. dd2 22:49 Arm band placed on right wrist. Patient placed in an exam room, on a stretcher, on dd2 pulse oximetry. 22:53 Patient has correct armband on for positive identification. Bed in low position. Call dd2 light in reach. Side rails up X 1. Client placed on continuous cardiac and pulse oximetry monitoring. NIBP monitoring applied. Door closed. Noise minimized. Pillow given. Verbal reassurance given. 22:53 No provider procedures requiring assistance completed. Initial lab(s) drawn, by ED dd2 staff, sent to lab. Inserted saline lock: 20 gauge in right forearm, using aseptic technique. Blood collected. Flushed with 10 mL NS. Patient maintains SpO2 saturation greater than 95% on room air. 23:33 UPPER EXTREMITY VENOUS UNILATE In Process Unspecified. EDMS 06/30 00:18 Joseph Smith MD is Hospitalizing Provider. ec2 01:57 Patient admitted, IV remains in place. dd2 02:38 Provided Education on: ADMISSION INSTRUCTIONS. dd2 Administered Medications: 00:07 Drug: Heparin (DVT/PE- Bolus per protocol) - HEParin IVP 80 units/kg IVP once; Max dd2 8,000 units {Co-Signature: shashank (Wes Marino RN).} Route: IVP; Site: right forearm; 00:22 Follow up: Response: No adverse reaction dd2 00:07 Drug: Heparin (DVT/PE Drip) 18 units/kg/[place] - ([place] [address] units, D5W IV 500 ml) IV dd2 at calculated rate Per protocol; Max initial rate 1800 units/hr {Co-Signature: shashank (Wes Marino RN).} Route: IV; Rate: calculated rate; Site: right forearm; 00:22 Follow up: Response: No adverse reaction dd2 02:00 Follow up: IV Status: Infusion continued upon transfer dd2 Medication: 06/29 22:53 VIS not applicable for this client. dd2 Outcome: 06/30 00:18 Decision to Hospitalize by Provider. ec2 02:37 Admitted to Med/surg accompanied by tech, via wheelchair, room 205, with chart, dd2 02:37 Condition: stable 02:37 Instructed on the need for admit, Demonstrated understanding of instructions, 02:38 Patient left the ED. dd2 Signatures: Dispatcher [employer] EDMS Kathya Marmolejo Edwin, MD MD ec2 HARSHA TRIANA RN RN dd2 Wes Marino RN bm8 Corrections: (The following items were deleted from the chart) 06/29 22:50 22:49 PSHx: illeostomy; dd2 dd2 06/30 00:08 00:07 Heparin (DVT/PE Drip) - ([place] [address] units, D5W IV 500 ml) IV at calculated dd2 rate in left antecubital dd2 00:09 00:07 Heparin (DVT/PE- Bolus per protocol) - HEParin IVP 7293.6 units IVP in left dd2 antecubital dd2
--- NOTE | 2024-06-30 01:21 | P.HP ---
Certification for Inpatient Patient admitted to: Observation With expected LOS: <2 Midnights Practitioner: I am a practitioner with admitting privileges, knowledge of patient current condition, hospital course, and medical plan of care. 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 Denies any chest pain or shortness of breath. Not hypoxic in ER. Denies any fever or chills. Patient was assessed in the ER and had an ultrasound which was consistent with DVT and was admitted for further management. Patient was started on heparin drip. Allergies No Known Allergies Allergy (Verified 06/30/24 02:36) Home medications list reviewed: Yes Home Medications: NK [No Home Meds] 06/30/24 - Past Medical/Surgical History Diabetic: No Past Medical History: Reviewed- Non-Contributory -: Colostomy Past Surgical History: Reviewed- Non-Contributory -: Umbilical hernia -: hand surgery - Family History Family History: Reviewed- Non-Contributory - Family History Father -: Heart disease Mother -: Cancer - Social History Smoking Status: Never smoker Alcohol use: No CD- Drugs: No Caffeine use: Yes Review of Systems 10-point ROS is otherwise unremarkable Physical Examination - Vital Signs Temperature: 97.9 F Blood Pressure: 146/90 Pulse: 82 Respirations: 18 Pulse Ox (%): 94 - Physical Exam General: Alert, In no apparent distress, Oriented x3 HEENT: Atraumatic, Normocephalic Neck: Supple, JVD not distended Respiratory: Clear to auscultation bilaterally, Normal air movement Cardiovascular: Normal pulses, Regular rate/rhythm Capillary refill: <2 Seconds Gastrointestinal: Soft and benign, W/out hepatosplenomegaly Musculoskeletal: No clubbing, Tenderness, Warmth Integumentary: No rashes Neurological: Normal speech, Normal strength at 5/5 x4 extr, Cranial nerves 3-12 intact Lymphatics: No axilla or inguinal lymphadenopathy - Studies Laboratory Data (last 24 hrs) 06/29/24 06/29/24 06/29/24 22:52 22:52 22:52 WBC 5.50 Hgb 16.0 Hct 46.7 Plt Count 185 PT 13.3 H INR 1.19 APTT 29.7 Sodium 136 Potassium 4.1 BUN 23 H Creatinine 1.34 H Glucose 98 Assessment and Plan - Plan DVT right upper extremity Started on heparin drip Will change to Eliquis in a.m. Pain control Monitor closely Not hypoxic Acute kidney injury Possibly due to dehydration IV hydration Monitor renal parameters History of recent colostomy/ileostomy Ostomy care GI/DVT prophylaxis Advanced directive full code Discharge Plan: Home Plan to discharge in: 24 Hours - Advance Directives Does patient have a Living Will: No Does patient have a Durable POA for Healthcare: No - Code Status/Comfort Care Code Status: Full Code Time Spent Managing Pts Care (In Minutes): 48
[2024-06-30] MEDS ORDERED: ONDANSETRON 4 MG/2 ML VIAL IV PRN (01:23)
[2024-06-30] MEDS ORDERED: ACETAMINOPHEN 325 MG TABLET PO PRN (01:23)
--- NOTE | 2024-06-30 01:45 | RAD REPORT ---
EXAM: Ultrasound veins right upper extremity CLINICAL DATA: 54 years Male RUE DVT Eval TECHNICAL DATA: Grayscale and color Doppler images of the deep veins of the right upper extremity were performed on 08/30/2023 at 11: 09 PM. Comparisons: No prior studies were available for comparison. FINDINGS: Grayscale and color Doppler images of the deep veins of the right upper extremity was performed. Imag ing was performed from the right internal jugular vein through the radial and ulnar veins. There is normal compressibility of the right jugular vein and normal flow within the jugular and subclavian ve ins. There is incomplete compressibility of the right axillary vein, right brachial vein and right basilic vein and there is absent flow and intraluminal echoes within these veins consistent with occl usive thrombus. There does appear to be normal compressibility of the radial and ulnar veins. The cephalic vein is not clearly visualized on this study. IMPRESSION: Evidence of superficial and deep venous thrombosis within the right upper extremity involving the rig ht axillary, right brachial and right basilic veins. Electronically signed by: Mis Hernandez DO 06/30/2024 01:41 AM [facility] Due to temporary technical issues with the PACS/[employer] reporting system, reports are being signed by the in-house radiologist without review as a courtesy to ensure prompt reporting the interpreting radiologist is fully responsible for the content of the report. Transcribed Date/Time: 06/30/2024 1:44 AM
[2024-06-30 02:37] VITALS: BMI 25.4
[2024-06-30] MEDS ORDERED: HEPARIN/D5W 25,000 UNIT/500 ML BAG IV SCH (03:00)
[2024-06-30 03:14] VITALS: O2SAT 95
[2024-06-30] MEDS: NA CHLORIDE 0.9% 1,000 ML IV SCH (04:45)
[2024-06-30 07:01] LABS: Specific Gravity 1.016 (1.005-1.030); Sqamous Epithelial None Seen /HPF (None Seen); Urine Bacteria None Seen /HPF (<20); Urine Bilirubin NEGATIVE (Negative); Urine Blood Negative (Negative); Urine Clarity Clear (Clear); Urine Color Light-Yellow (Yellow); Urine Culture Reflex Order NOT NEEDED; Urine Glucose NEGATIVE (Negative); Urine Ketones NEGATIVE (Negative); Urine Microscopic Reflex YN ORDER UMIC; Urine Mucus Slight /HPF (None Seen); Urine Nitrite NEGATIVE (Negative); Urine Protein NEGATIVE (Negative); Urine RBC None Seen /HPF (None Seen); Urine Urobilinogen Normal (Normal); Urine WBC <5 /HPF (<5); Urine pH 5.5 (5.0-7.0)
[2024-06-30 12:16] VITALS: BP 129/68; TEMP 97.9
--- NOTE | 2024-06-30 12:38 | P.DS ---
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 Denies any chest pain or shortness of breath. Not hypoxic in ER. Denies any fever or chills. Patient was assessed in the ER and had an ultrasound which was consistent with DVT and was admitted for further management. Patient was started on heparin drip. - Physical Exam General: Alert, In no apparent distress, Oriented x3 HEENT: Atraumatic, Normocephalic Neck: Supple, JVD not distended Respiratory: Clear to auscultation bilaterally, Normal air movement Cardiovascular: Normal pulses, Regular rate/rhythm Capillary refill: <2 Seconds Gastrointestinal: Soft and benign, W/out hepatosplenomegaly Musculoskeletal: No clubbing, Tenderness, Warmth Integumentary: No rashes Neurological: Normal speech, Normal strength at 5/5 x4 extr, Cranial nerves 3-12 intact Lymphatics: No axilla or inguinal lymphadenopathy Hospital Course: 54 yrs old Male with past medical history of 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 Denies any chest pain or shortness of breath. Not hypoxic in ER. Denies any fever or chills. Patient was assessed in the ER and had an ultrasound which was consistent with DVT RUE nd was admitted for further management. Treated with heparin dip, start eliquis, plan to discharge home on Eliquis. educated od side effects eliquis. Tolerating diet, still discharge home, follow-up with PCP in 1 week call office for appointment. follow-up with Dr. Magaña office after discharge, call office for appointment Assessment DVT in the right upper extremity Plan to discharge home on Eliquis 10 mg 1 p.o. twice daily for 7 days-then transition to Eliquis 5 mg 1 p.o. twice daily for 3 months (90 days) Monitor for bleeding while on Eliquis go to the ER if any noted bleeding Ileostomy-monitor intake, output, keep daily log of intake,-follow-up with Dr. Magaña Document vital signs, I&O log, twice daily -take dr lewis educated on hypovolemia, Notify Dr. Magaña's office for initiation of Eliquis, Continue home medicines as previously prescribed GOAL: Clear understanding of disease process INSTRUCTIONS: Physician Discharge Instructions: -Follow-up with Dr. Magaña's office for ileostomy -Follow-up with PCP in 1 to 2 weeks -Please call Dr. Wu at [phone] if any questions regarding hospital stay -Please call nursing station at [phone] if any nursing or medication questions -Return to the emergency room if symptoms worsen Diet: ADA, low sodium Activity: Fall precautions <Juliet Longo - Last Filed: 07/01/24 07:26> Admission Date: 06/30/24 Discharge Date: 06/30/24 Hospital Course: Chart has been reviewed. Events of the last 24 hours have been noted. Case discussed with BRITTANY. I performed a substantial part of the MDM during this patient's care today. I personally made or approved the documented management plan and acknowledge its risk of complications. I agree with the findings and documentation provided in the BRITTANY's notes <Steve Wu - Last Filed: 07/02/24 05:34> Disposition: ROUTINE DISCHARGE Discharge Condition: GOOD Vital Signs/Physical Exam: Temp Pulse Resp BP Pulse Ox 97.9 F 75 14 129/68 97 06/30/24 12:00 06/30/24 12:00 06/30/24 12:00 06/30/24 12:00 06/30/24 12:00 Laboratory Data at Discharge: WBC 5.50 thou/uL (4.3-10.9) 06/29/24 22:52 Hgb 16.0 g/dL (13.6-17.9) 06/29/24 22:52 Hct 46.7 % (39.6-49.0) 06/29/24 22:52 Plt Count 185 thou/uL (152-406) 06/29/24 22:52 PT 13.3 SECONDS (9.4-12.5) H 06/29/24 22:52 INR 1.19 06/29/24 22:52 APTT 73.6 SECONDS (24.3-36.9) H 06/30/24 09:50 Sodium 136 mEq/L (136-145) 06/29/24 22:52 Potassium 4.1 mEq/L (3.5-5.1) 06/29/24 22:52 BUN 23 mg/dL (7-18) H 06/29/24 22:52 Creatinine 1.34 mg/dL (0.70-1.30) H 06/29/24 22:52 Glucose 98 mg/dL (74-106) 06/29/24 22:52 <Juliet Longo - Last Filed: 07/01/24 07:26> Vital Signs/Physical Exam: Temp Pulse Resp BP Pulse Ox 97.9 F 75 14 129/68 97 06/30/24 12:00 06/30/24 12:00 06/30/24 12:00 06/30/24 12:00 06/30/24 12:00 Laboratory Data at Discharge: WBC 5.50 thou/uL (4.3-10.9) 06/29/24 22:52 Hgb 16.0 g/dL (13.6-17.9) 06/29/24 22:52 Hct 46.7 % (39.6-49.0) 06/29/24 22:52 Plt Count 185 thou/uL (152-406) 06/29/24 22:52 PT 13.3 SECONDS (9.4-12.5) H 06/29/24 22:52 INR 1.19 06/29/24 22:52 APTT Cancelled 06/30/24 14:00 Sodium 136 mEq/L (136-145) 06/29/24 22:52 Potassium 4.1 mEq/L (3.5-5.1) 06/29/24 22:52 BUN 23 mg/dL (7-18) H 06/29/24 22:52 Creatinine 1.34 mg/dL (0.70-1.30) H 06/29/24 22:52 Glucose 98 mg/dL (74-106) 06/29/24 22:52 <Steve Wu - Last Filed: 07/02/24 05:34> Diet: Low sodium Activity: Fall precautions Time spent managing pt's care (in minutes): 45 <Juliet Longo - Last Filed: 07/01/24 07:26> <Steve Wu - Last Filed: 07/02/24 05:34> Home Medications: Apixaban [Eliquis] 5 mg PO BID 90 Days #180 tab 06/30/24 Apixaban [Eliquis] 10 mg PO BID 7 Days #13 tablet 06/30/24 New Medications: Apixaban [Eliquis] 5 mg PO BID 90 Days #180 tab Apixaban [Eliquis] 10 mg PO BID 7 Days #13 tablet Physician Discharge Instructions: PROBLEM: emboli GOAL: Clear understanding of disease process INSTRUCTIONS: Diet: Low sodium Activity: Fall precaution 54 yrs old Male with past medical history of 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 Denies any chest pain or shortness of breath. Not hypoxic in ER. Denies any fever or chills. Patient was assessed in the ER and had an ultrasound which was consistent with DVT and was admitted for further management. Treated with heparin dip, plan to discharge home on Eliquis. Tolerating diet, still discharge home, follow-up with PCP in 1 week call office for appointment follow-up with Dr. Magaña office after discharge, call office for appointment Assessment DVT in the right upper extremity Plan to discharge home on Eliquis 10 mg 1 p.o. twice daily for 7 days- 07-31-10 mg for 7 days then transition to Eliquis 5 mg 1 p.o. twice daily for 3 months (5 mg for 90 da ys-End in August) Monitor for bleeding while on Eliquis go to the ER if any noted bleeding Ileostomy-monitor intake, output, keep daily log of intake, [id number]-[id number]-iz with Dr. Magaña Document vital signs twice daily Notify Dr. Magaña's office for initiation of Eliquis, Continue home medicines as previously prescribed GOAL: Clear understanding of disease process INSTRUCTIONS: Physician Discharge Instructions: -Follow-up with Dr. Magaña's office for ileostomy -Follow-up with PCP in 1 to 2 weeks -Please call Dr. Wu at [phone] if any questions regarding hospital stay -Please call nursing station at [phone] if any nursing or medication questions -Return to the emergency room if symptoms worsen Diet: ADA, low sodium Activity: Fall precautions Followup: Arturo Rapp DO [Primary Care Provider] - MARGARETTE MAGAÑA MD [OUTSIDE PHYSICIAN] -
[2024-06-30] MEDS: APIXABAN 5 MG TABLET PO SCH (13:40)
[2024-07-07] MEDS ORDERED: APIXABAN 5 MG TABLET PO SCH (09:00)
== END 2024-06-30 13:59 | disposition home or self-care (01) ==
LOC: ER 22:11 → ERHOLD 06-30 01:23 → 2ND 06-30 02:04
PROVIDERS: ADMIT Family Medicine; ATTEND Hospitalist
DX: I82.621 Acute embolism and thrombosis of deep veins of right upper extremity (principal); N17.9 Acute kidney failure, unspecified; Z93.3 Colostomy status
CPT/HCPCS: 96365; 85025; 81001; 80048; 36415; 85610; 85730 ×3; 93971; 99285; 96366; J1644; J7030; G0378 ×2